=== PATIENT | female | born 1945 | race Caucasian/White ===

== ENCOUNTER → 2021-05-08 | Day surgery (SDC) | payer MEDICARE, SELFPAY | PROVIDERS: PCP Internal Medicine; Visit Provider Internal Medicine | DX: Z01.818 Encounter for other preprocedural examination (principal) | CPT/HCPCS: 87635 ==

== ENCOUNTER 2021-05-15 08:05 | Day surgery (SDC) | payer MEDICARE, SELFPAY ==
--- NOTE | 2021-05-15 08:56 | ANES.PREANE2 ---
Pre-Anesthetic Assessment Pre-Anesthetic Assessment: Height/Weight: Height 1.57 m Preop Diagnosis: polyps Proposed Procedure: Operation Date: 05/19/21 10:00 Proposed Procedures p EGD/colon 26902 G0105 R19.7 Z86.010(Not Applicable) - Natan Izquierdo MD s Colonoscopy(Not Applicable) - Natan Izquierdo MD Familial anesthetic complications: None Was Beta Diogenes taken within 24 hours: N/A Was Clonidine taken within 24 hours: N/A Last intake: > 8 hrs Social: Social History: No alcohol and No tobacco Exam: Pre-Anes Outpt Exam: alert, oriented x 3, clear to auscultation bilaterally and regular rate & rhythm Airway: Cervical ROM: WNL MP: 4 Dentition: False Additional comments: poor mouth opening CV/HEM: CV/HEM: HTN Anesthetic Plan: ASA status: 2 Anesthesia: MAC Risk of > 500 ml blood loss (7ml/kg in children): No PFSH Anesthesia PFSH: Medical History (Updated 04/26/21 @ 13:54 by Natan Izquierdo MD) Age-related cognitive decline Arthritis Essential (primary) hypertension Gout, unspecified History of melanoma Surgical History History of cholecystectomy History of colonoscopy History of esophagogastroduodenoscopy (EGD) History of hysterectomy Family History Other Cancer Dementia Social History Smoking and tobacco status: former smoker Alcohol intake: never History of recent travel: No Data Anesthesia Cardiac Studies: No Data to Display
[2021-05-15 11:36] VITALS: BP 181/72; PULSE 65; RESP 16; TEMP 36.6; O2SAT 97; BMI 24.9
[2021-05-15] MEDS: sodium chloride 0.9% 1,000 ML 30 ML IV (11:50)
--- NOTE | 2021-05-15 12:05 | W.PM.OPSFHP ---
Same Day Surgery H&P Indication for Procedure/HPI DATE OF PROCEDURE: May 15, 2021 CHIEF COMPLAINT/INDICATIONFOR SURGICAL PROCEDURE: Diarrhea PREOP DIAGNOSIS: diarrhea and screening PLANNED PROCEDRUE: Operation Date: 05/15/21 11:30 Proposed Procedures p EGD/colon 47161 G0105 R19.7 Z86.010(Not Applicable) - Natan Izquierdo MD s Colonoscopy(Not Applicable) - Natan Izquierdo MD Medications/Allergies* Allergies/Adverse Reactions Allergy/AdvReac Type Severity Reaction Status Date / Time No Known Allergies Allergy Verified 04/26/21 13:19 Pertinent History/Comorbid Conditions* Medical History (Updated 04/26/21 @ 13:54 by Natan Izquierdo MD) Age-related cognitive decline Arthritis Essential (primary) hypertension Gout, unspecified History of melanoma Surgical History (Updated 01/06/20 @ 10:43 by Natan Izqueirdo MD) History of cholecystectomy History of colonoscopy History of esophagogastroduodenoscopy (EGD) History of hysterectomy Family History (Updated 12/15/19 @ 16:36 by Naomi Gamez LPN) Dementia Cancer Social History Smoking and tobacco status: former smoker Alcohol intake: never History of recent travel: No Pertinent Exam Findings alert, oriented x 3, clear to auscultation bilaterally, regular rate & rhythm, operative site marked and procedure specific exam findings Recommendations Surgery/Procedure today Coding Level of Care Code Acute [employer] 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
[2021-05-15 12:34] VITALS: BP 171/69; PULSE 59; RESP 16; TEMP 36.2; O2SAT 97
[2021-05-15 12:50] VITALS: BP 180/76; PULSE 57; RESP 18; O2SAT 97
--- NOTE | 2021-05-15 19:28 | ANE.PACU2 ---
Inpatient post-anesthesia follow up: Airway intact: Yes Vital signs: Temperature 97.2 F Pulse Rate 57 Respiratory Rate 18 Blood Pressure 180/76 Pulse Oximetry 97 Oxygen Delivery Me thod Room Air Oxygen Flow Rate Fraction of Inspir ed Oxygen Hydration adequate: Yes Nausea and vomiting: No Pain level: 2 Mental status: Baseline
== END 2021-05-15 12:45 | disposition home or self-care (01) ==
PROVIDERS: PCP Internal Medicine; Visit Provider Internal Medicine
PROC: 0DJ08ZZ Inspection of Upper Intestinal Tract, Via Natural or Artificial Opening Endoscopic (ICD-10-PCS; CPT 43235; principal; 2021-05-15 11:30)
PROC: 0DJD8ZZ Inspection of Lower Intestinal Tract, Via Natural or Artificial Opening Endoscopic (ICD-10-PCS; CPT 45378; 2021-05-15 11:30)
DX: R19.7 Diarrhea, unspecified (principal); M19.90 Unspecified osteoarthritis, unspecified site; I10 Essential (primary) hypertension; Z87.891 Personal history of nicotine dependence
CPT/HCPCS: 43239; 82274; 83630; 87493; 87506; 88305; 96360; J2704; J7030

== ENCOUNTER → 2021-11-08 15:59 | Outpatient (BNVA) | payer MEDICARE, SELFPAY | PROVIDERS: PCP Internal Medicine; Visit Provider Internal Medicine | DX: R41.3 Other amnesia (principal); F33.1 Major depressive disorder, recurrent, moderate | CPT/HCPCS: 80053; 82607; 82746; 84443 ==

== ENCOUNTER 2023-01-15 09:44 | Outpatient (CLI) | payer MEDICARE, SELFPAY ==
--- NOTE | 2023-01-15 09:50 | CT_ITS ---
WS: [id number] CT HEAD TECHNIQUE: Noncontrast CT of the head obtained from the skullbase to the vertex. 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 DLP: 969.[address] scans at [facility] use at least one of these dose optimization techniques: automated e xposure control; mA and/or kV adjustment per patient size (includes targeted exams where dose is matc hed to clinical indication); or iterative reconstruction. FINDINGS: No evidence of intracranial hemorrhage or mass effect. Ventricular system and basal cisterns are lucio nt. Moderate small vessel changes with moderate parenchymal volume loss. Vascular calcification. No e xtra-axial fluid collections. No evidence of mass or mass effect. Tiny chronic lacunar infarct RIGHT frontal subcortical white matter. Paranasal sinuses and mastoid air cells are well aerated. .Normal visualized soft tissues. CT/CT head wo con* [id number] IMPRESSION: 1. No evidence of intracranial hemorrhage or mass effect. 2. Moderate small vessel changes with moderate parenchymal volume loss. 3. Vascular calcification. 4. No acute intracranial findings.
== END 2023-01-15 09:45 | disposition home or self-care (01) ==
LOC: RAD 09:47
PROVIDERS: PCP Internal Medicine; Visit Provider Internal Medicine
DX: R41.81 Age-related cognitive decline (principal)
CPT/HCPCS: 70450